=== PATIENT | male | born 1950 | race Caucasian/White ===

== ENCOUNTER 2017-08-31 18:32 | Emergency (ER) | payer MEDICARE, BC ==
[2017-08-31] MEDS: LIDOCAINE WITH 8.4% SOD BICARB 3 ML DISP.SYRIN. INJ (18:57)
[2017-08-31] MEDS: DIPHTH,PERTUSS(ACELL),TET TOX 0.5 ML DISP.SYRIN. VAX IM (18:57)
== END 2017-08-31 19:57 | disposition home or self-care (01) ==
LOC: ER 18:32
DX: S61.213A Laceration without foreign body of left middle finger without damage to nail, initial encounter (principal); W26.0XXA Contact with knife, initial encounter; Y93.89 Activity, other specified; Y99.8 Other external cause status; Y92.89 Other specified places as the place of occurrence of the external cause
CPT/HCPCS: 12001; 90471; 90715; 99283

== ENCOUNTER 2017-09-07 11:54 | Emergency (ER) | payer MEDICARE, BC | END 2017-09-07 13:00 | disposition home or self-care (01) | LOC: ER 11:54 | DX: S61.213D Laceration without foreign body of left middle finger without damage to nail, subsequent encounter (principal); I10 Essential (primary) hypertension; X58.XXXD Exposure to other specified factors, subsequent encounter | CPT/HCPCS: 99281 ==